=== PATIENT | male | born 1985 | race Caucasian/White ===

== ENCOUNTER 2020-10-06 11:54 | Outpatient (REF) | payer BC, SELFPAY ==
[2020-10-06 12:18] LABS: COVID-19 Test Negative (Negative); IDNOW Serial# 55D5AD1C
== END 2020-10-06 11:55 | disposition home or self-care (01) ==
LOC: HO.LAB 11:54
PROVIDERS: Visit Provider Internal Medicine
DX: Z20.822 Contact with and (suspected) exposure to COVID-19 (principal)
CPT/HCPCS: 36415; 87635; C9803

== ENCOUNTER → 2024-09-11 09:29 | Outpatient (BNVA) | payer OTHER, SELFPAY | PROVIDERS: Visit Provider Physician Assistant Medical | DX: S83.91XA Sprain of unspecified site of right knee, initial encounter (principal); S76.111A Strain of right quadriceps muscle, fascia and tendon, initial encounter; X50.1XXA Overexertion from prolonged static or awkward postures, initial encounter; Z02.79 Encounter for issue of other medical certificate | CPT/HCPCS: 73562; 99203 ==

== ENCOUNTER 2024-10-08 09:58 | Outpatient (AMB) | payer OTHER, SELFPAY ==
--- NOTE | 2024-10-08 10:01 | MHC.OFFVIS ---
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 He reports instability s/p injury andmild swelling. Increased Stiffness since the injury. Reports no pain. Increased pains with pivoting. He was seen at [facility] for Quad Tendon & Patellar Tendon Ligament. He has been working with physical therapy - he is being seen at [facility] in [place]. He is not taking any medications for the injury. He is at work on regular duty. 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 09/02/24 he was at work doing a deep squat when he felt a shift in his knee. He states since this incident he has felt his knee is unstable. He feels pain and cracking with rotation of the knee. He has tried Tylenol. He has been working with PT 2x a week. He has tension over the patella with flexion. 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 Full range of motion. Specific tenderness to palpation. Negative patellar grind. Neurovascularly intact. Results Reviewed Results Reviewed: X-rays of the right knee obtained in the office today are negative for any acute or chronic abnormalities. Assessment & Plan Assessment & Plan (1) Chondromalacia patellae, right knee: Code(s): M22.41 - Chondromalacia patellae, right knee Category: Medical Plan: He was fit for a Genumed knee brace to help with support around the patella. I did put in a new referral for physical therapy and educated him on rehab and conditioning to help take the load off the patella with weight-bearing and strenuous activities. If symptoms persist or worsen we did discuss the potential benefits of steroid injection. He will contact me if he is interested in otherwise follow up as needed. Orders: Orders XR knee RT 3V Today M17.11 - Unilateral primary osteoarthritis, right knee XR knee LT 1V Today M25.562 - Pain in left knee PT Evaluation and Treatment Today M22.41 - Chondromalacia patellae, right knee Medications: New celecoxib (Celebrex) 200 mg PO BID 14 days 28 caps 3RF Coding Level of Care Code New Pt Level 3 (55748) Complex EM visit Add On G2211 Diagnoses Chondromalacia patellae, right knee M22.41
== END 2024-10-08 11:04 | disposition home or self-care (01) ==
LOC: HO.HOS 09:59
PROVIDERS: Visit Provider Physician Assistant
DX: M22.41 Chondromalacia patellae, right knee (principal); Z04.2 Encounter for examination and observation following work accident
CPT/HCPCS: 99203

== ENCOUNTER → 2024-10-08 10:00 | Outpatient (BNV) | payer OTHER, SELFPAY | PROVIDERS: Visit Provider Radiology Diagnostic Radiology | DX: M17.11 Unilateral primary osteoarthritis, right knee (principal) | CPT/HCPCS: 73562 ==

== ENCOUNTER 2024-10-08 14:10 | Outpatient (REF) | payer OTHER, SELFPAY ==
--- NOTE | ~2024-10-08 | XR_ITS ---
EXAMINATION: XR KNEE, RIGHT CLINICAL INFORMATION: M17.11 - Unilateral primary osteoarthritis, right knee COMPARISON: September 11, 2024. TECHNIQUE: Four views of the right knee. FINDINGS: Sclerosis and the articular surface of the medial tibial dome both knees. Asymmetric joint space narrowing, mild in the medial compartment. There is a well-defined eccentric periosteal irregularity in the medial aspect distal metaphysis of the right femur. No acute cortical disruption or malalignment. No suprapatellar bursa joint effusion, right knee. XR/XR knee RT 3V IMPRESSION: Medial compartment osteoarthrosis, mild to moderate, both kidneys. Questionable small exostosis, medial aspect distal metaphysis right femur.. Electronically signed by: Barak Gross MD 10/08/2024 02:36 PM EDT
== END 2024-10-08 14:11 | disposition home or self-care (01) ==
LOC: HO.HOSX 14:10
PROVIDERS: Visit Provider Physician Assistant
DX: M22.41 Chondromalacia patellae, right knee (principal); M17.11 Unilateral primary osteoarthritis, right knee
CPT/HCPCS: 73562; 99202